=== PATIENT | male | born 1975 | race Hispanic/Latino ===

== ENCOUNTER → 2024-11-06 | Outpatient (CLI) | payer BC ==
--- NOTE | 2024-11-07 03:02 | HMCSR ---
APPROVED REPORT EXAM: Two-dimensional and M-mode echocardiogram with Doppler and color Doppler. INDICATION ICD: Chest Pain 2D Dimensions RVDd3.7 cmLVEF(%)53.1 (>50%)LVED Vol(simp.)139.0 mL IVSd0.9 (0.7-1.1cm)FS(%)28 %LVES Vol(simp.)61.5 mL LVDd5.1 (3.8-5.6cm)LA (2D)4.3 (1.6-4.0cm)LVEF(%, simp.)56 % PWd1.1 (0.7-1.1cm)Ao Root(2D)3.6 (2.0-3.7cm)LA ESV INDEX (4CH)32.90 mL/m2 IVSs1.2 cmLVOT diam2.3 (1.8-2.4cm)LA ESV INDEX (2CH)28.90 mL/m2 LVDs3.7 (2.5-4.0cm)LA ESV INDEX (BP)31.70 mL/m2 PWs1.6 cm M-Mode Dimensions EPSS0.7 cm LA (MM)4.1 (1.6-4.0cm) Ao Root(MM)3.7 (2.0-3.7cm) Aortic Valve AoV VTI0.3 mAo Mean GR6.0 mmHgLVOT VTI0.26 m SARAH (VMAX)3.2 cm2AVA (VTI) 3.2 cm2 Mitral Valve MV E Vmax89.7 cm/sDECEL Vbmp584 ms MV A Vmax70.3 cm/sP 1/2 T79 ms E/A ratio1.3MVA (PHT)2.8 cm2 TDI E/E' Fdiywg22.4E/E' Knjczrj27.4 Medial E' Peak V6.70 cm/sLateral E' Peak V6.70 cm/s Left Ventricle The left ventricle is normal size. Normal wall motion There is normal left ventricular wall thickness . LVEF is 55-60%. The left ventricular diastolic function is indeterminate Right Ventricle The right ventricle is normal size. The right ventricular systolic function is normal. Atria The left atrium size is mildly dilated The right atrium is moderately dilated. Aortic Valve The aortic valve is normal in structure. No aortic regurgitation is present. There is no aortic valvu lar stenosis. Mitral Valve The mitral valve is normal in structure. There is no mitral valve regurgitation noted. There is no mi tral valve stenosis. Tricuspid Valve The tricuspid valve is normal in structure. There is no tricuspid valve regurgitation noted. Pulmonic Valve The pulmonary valve is normal in structure. There is no pulmonic valvular regurgitation. Great Vessels The aortic root is normal in size. The IVC is normal in size and collapses <50% with inspiration. Pericardium There is no pericardial effusion. Conclusion LVEF is 55-60%. The left ventricular diastolic function is indeterminate There is normal left ventricular wall thickness. The left ventricle is normal size. Normal wall motion Mildly dilated LA There is no pericardial effusion. Normal pulmonary pressures Study quality was difficult, valves were not well seen
== END | disposition home or self-care (01) ==
LOC: RAH 11:59
PROVIDERS: ATTEND Internal Medicine Cardiovascular Disease
DX: I51.7 Cardiomegaly (principal); R07.9 Chest pain, unspecified
CPT/HCPCS: 93306